=== PATIENT | male | born 1955 | race Caucasian/White ===

== ENCOUNTER 2023-12-02 17:53 | Emergency (ER) | payer BC, OTHER ==
[2023-12-02 18:12] VITALS: BP 147/84; PULSE 65; RESP 16; TEMP 97.9; BMI 30.5
== END 2023-12-02 21:06 | disposition home or self-care (01) ==
LOC: FER 17:53
DX: H93.13 Tinnitus, bilateral (principal); R20.2 Paresthesia of skin; M54.50 Low back pain, unspecified
CPT/HCPCS: 70450-TC; 99284-25